=== PATIENT | female | born 1995 | race Caucasian/White ===

== ENCOUNTER 2017-04-22 18:59 | Emergency (ER) | payer OTHER ==
[~2017-04-22] VITALS: Ht 154.9 cm; Wt 52.2 kg
== END 2017-04-22 20:31 | disposition home or self-care (01) ==
LOC: ED 18:59
DX: F15.10 Other stimulant abuse, uncomplicated (principal); Z88.2 Allergy status to sulfonamides; F17.200 Nicotine dependence, unspecified, uncomplicated